=== PATIENT | female | born 1985 | race Caucasian/White ===

== ENCOUNTER 2021-09-19 08:41 | Emergency (ER) | payer BC ==
[~2021-09-19] VITALS: Ht 162.6 cm; Wt 83.9 kg
[2021-09-19] MEDS ORDERED: NAPROXEN250 MG PO (08:51)
[2021-09-19] MEDS ORDERED: LIDOCAINE1 EAC1 EXT (08:51)
== END 2021-09-19 09:44 | disposition home or self-care (01) ==
LOC: ER 08:45
DX: M54.9 Dorsalgia, unspecified (principal); R07.89 Other chest pain
CPT/HCPCS: 71046; 99283